=== PATIENT | male | born 1990 | race Caucasian/White ===

== ENCOUNTER 2018-08-09 16:15 | Inpatient (IN) ==
[2018-08-09] MEDS ORDERED: Morphine Inj 4 MG/ML Vial ONE ×3 (16:21→22:54)
[2018-08-09] MEDS ORDERED: Diphtheria/Tetanus/Pertussis Vaccine Inj 0.5 ML Syringe IM ONE (16:21)
[2018-08-09] MEDS ORDERED: ceFAZolin 2 GM Premix Inj 2 GM/50 ML PIGGYBACK IV.SIG ONE (16:21)
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
[2018-08-09 16:40] LABS: Baso # (Auto) 0.1 th/mm3 (0.0-0.2); Baso % (Auto) 0.7 % (0.0-2.0); Eos # (Auto) 0.2 th/mm3 (0.0-0.4); Eos % (Auto) 1.9 % (0.0-4.0); Hematocrit 40.2 % (39.0-51.0); Hemoglobin 14.3 gm/dL (13.0-17.0); Lymph # (Auto) 5.4 th/mm3 (1.0-4.8); Mean Corpuscular HGB Conc 35.4 % (32.0-36.0); Mean Corpuscular Hemoglobin 31.2 pg (27.0-34.0); Mean Corpuscular Volume 88.2 fL (80.0-100.0); Mono # (Auto) 1.2 th/mm3 (0.0-0.9); Mono % (Auto) 9.8 % (0.0-8.0); Neut # (Auto) 5.4 th/mm3 (1.8-7.7); Neut % (Auto) 43.6 % (16.0-70.0); Platelet Count 194 th/mm3 (150-450); Red Blood Count 4.56 mil/mm3 (4.50-5.90); Red Cell Distribution Width 13.2 % (11.6-17.2); White Blood Count 12.3 th/mm3 (4.0-11.0)
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
[2018-08-09 16:51] LABS: Activated Partial Thrombo Time 24.1 sec (23.4-31.7); INR 1.1 Ratio; Prothrombin Time 11.5 sec (9.8-11.6)
[2018-08-09 16:56] LABS: Anion Gap 6 meq/L (5-15); Blood Urea Nitrogen 35 mg/dL (7-18); Calcium 8.5 mg/dL (8.5-10.1); Carbon Dioxide 29.1 meq/L (21.0-32.0); Chloride 104 meq/L (98-107); Glomerular Filtration Rate 49 mL/min (>89); Glucose,Random 127 mg/dL (74-106); Sodium 139 meq/L (136-145)
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
[2018-08-09 17:22] LABS: Eosinophils 1 % (0-4); Lymphocytes 37 % (9-44); Monocytes 10 % (0-8)
[2018-08-09 17:23] LABS: Ovalocytes 1+; Platelet Estimate Normal (Normal); Platelet Morphology Normal (Normal)
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
[2018-08-09] MEDS ORDERED: Post-op Orders (for Pharmacy) OTHER ONE (18:07)
[2018-08-09] MEDS ORDERED: Bisacodyl 10 MG Supp RECTAL PRN (18:07)
[2018-08-09] MEDS ORDERED: Naloxone Inj 0.4 MG/ML Vial IV.PUSH PRN (18:07)
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
[2018-08-09] MEDS ORDERED: Post-op Orders (for Pharmacy) OTHER STA (22:20)
--- NOTE | 2018-08-09 22:20 | P.BOP ---
Date of procedure: 08/09/18 Procedure: 1. I&D L open tibia and fibula fractures 2. IMN L proximal third tibial shaft fracture 3. Closed treatment L fibula shaft fracture 4. Closed reduction left hip dislocation Implants: Synthes tibial IMN 10mm nail Anesthesia: GETA Surgeon: Nadja Mathews MD Estimated blood loss (mL): 200 Pathology: none sent Condition: stable Disposition: PACU (NWB LLE. STRICT POSTERIOR HIP PRECAUTIONS in [facility])
--- NOTE | 2018-08-09 22:52 | XR ---
EXAM DATE: 08/09/2018 10:46 PM EST AGE/SEX: 89 years / Male INDICATIONS: ORIF of left tibia done in the operating room. CLINICAL DATA: This is the patient's initial encounter. Patient reports that signs and symptoms have been present for 1 day and indicates a pain score of Nonresponsive. MEDICAL/SURGICAL HISTORY: Non-responsive. Non-responsive. COMPARISON: No prior exams available for comparison. FINDINGS: 5 spot intraoperative fluoroscopic views of the left tibia and fibula demonstrate antegrade intramedu llary rajat placement across the comminuted proximal tibial fracture with 3 proximal interlocking screw s and 2 distal interlocking screws. There is an oblique fracture of the proximal fibular diaphysis ag ain noted. CONCLUSION: ORIF left tibia fracture. Electronically signed by: Huber Kang MD 08/09/2018 10:51 PM EST
[2018-08-09] MEDS ORDERED: fentaNYL Citrate Inj 100 MCG/2 ML Ampul ONE (22:53)
--- NOTE | 2018-08-09 22:53 | XR ---
EXAM DATE: 08/09/2018 10:48 PM EST AGE/SEX: 89 years / Male INDICATIONS: Post reduction of the hip done in the operating room. CLINICAL DATA: This is the patient's initial encounter. Patient reports that signs and symptoms have been present for 1 day and indicates a pain score of Nonresponsive. MEDICAL/SURGICAL HISTORY: Non-responsive. Non-responsive. COMPARISON: [facility] [place] [facility] [place] PELVIS W CONTRAST, 08/09/2018. [facility] [place] [facility] [place] PELVIS AP 1V, 08/09/2018. . FINDINGS: A single spot AP fluoroscopic view of the left hip demonstrate a comminuted fracture of the acetabulu m. CONCLUSION: Left acetabular fracture. Electronically signed by: Huber Kang MD 08/09/2018 10:52 PM EST
[2018-08-09] MEDS ORDERED: *Ondansetron Inj 4 MG/2 ML Vial PERIprocedural Use ONLY ONE (23:22)
--- NOTE | 2018-08-10 00:08 | CT ---
EXAM DATE: 08/09/2018 11:47 PM EST AGE/SEX: 89 years / Male INDICATIONS: Left hip post reduction. CLINICAL DATA: This is the patient's initial encounter. Patient reports that signs and symptoms have been present for 1 day and indicates a pain score of Nonresponsive. MEDICAL/SURGICAL HISTORY: Non-responsive. Non-responsive. RADIATION DOSE: 59.20 CTDI (mGy) COMPARISON: [facility] [place], HIP LEFT AP ONLY 1V, 08/09/2018. [facility] [place] ABDOMEN & PELVIS W CONTRAST, 08/09/2018 . . TECHNIQUE: Multiple contiguous axial images were acquired using a multirow detector CT scanner witho ut contrast. Multiplanar reconstruction was performed in the sagittal and coronal planes. Using aut omated exposure control and adjustment of the mA and/or kV according to patient size, radiation dose was kept as low as reasonably achievable to obtain optimal diagnostic quality images. DICOM format i mage data is available electronically for review and comparison. FINDINGS: There is a comminuted fracture of the left acetabulum with multiple displaced fragments seen posterio rly. The sacroiliac joints are approximated. The fracture is seen through the roof of the acetabulum, extending to the anterior column and posterior column. The visualized proximal femur appears intact. CONCLUSION: 1. Comminuted acetabular fracture. Electronically signed by: Huber Kang MD 08/10/2018 12:07 AM EST
[2018-08-10] MEDS: ceFAZolin 1 GM Premix Inj 1 GM/50 ML PIGGYBACK IV.SIG SCH ×3 (00:21→23:03)
[2018-08-10] MEDS: HYDROmorphone PF Inj 1 MG/ML Ampul IV.PUSH PRN ×8 (00:41→23:35)
[2018-08-10] MEDS: Sod Chloride 0.9% Inj 1,000 ML IV.CONT SCH ×3 (01:18→21:50)
[2018-08-10 03:31] LABS: Amphetamine Screen,Urine Neg (Neg); Barbiturate Screen,Urine Neg (Neg); Cannabinoid Screen,Urine Neg (Neg); Cocaine Screen,Urine Neg (Neg)
[2018-08-10 03:33] LABS: Opiate Screen,Urine Pos (Neg)
[2018-08-10 03:34] LABS: Bacteria,Urine Rare /hpf; Bilirubin,Urine Negative (Negative); Clarity,Urine Clear (Clear); Color,Urine Yellow (Yellw/Straw); Glucose,Urine (UA) Negative (Negative); Leukocyte Esterase,Urine Negative (Negative); Mucus,Urine Few /lpf (Occasional); Nitrite,Urine Negative (Negative); Specific Gravity,Urine 1.031 (1.002-1.035)
[2018-08-10 04:23] LABS: Baso % (Auto) 0.1 % (0.0-2.0); Hematocrit 32.5 % (39.0-51.0); Hemoglobin 11.8 gm/dL (13.0-17.0); Lymph # (Auto) 0.8 th/mm3 (1.0-4.8); Lymph % (Auto) 9.1 % (9.0-44.0); Mean Corpuscular Hemoglobin 31.3 pg (27.0-34.0); Mean Corpuscular Volume 86.2 fL (80.0-100.0); Mean Platelet Volume 8.9 fL (7.0-11.0); Mono % (Auto) 11.7 % (0.0-8.0); Neut # (Auto) 6.9 th/mm3 (1.8-7.7); Neut % (Auto) 79.1 % (16.0-70.0); Platelet Count 146 th/mm3 (150-450); Red Blood Count 3.77 mil/mm3 (4.50-5.90); Red Cell Distribution Width 13.2 % (11.6-17.2); White Blood Count 8.8 th/mm3 (4.0-11.0)
[2018-08-10 04:38] LABS: Mean Corpuscular HGB Conc 36.3 % (32.0-36.0)
[2018-08-10 04:55] LABS: Anion Gap 6 meq/L (5-15); Blood Urea Nitrogen 20 mg/dL (7-18); Chloride 107 meq/L (98-107); Glomerular Filtration Rate Greater Than 89 mL/min (>89); Glucose,Random 157 mg/dL (74-106); Potassium 4.3 meq/L (3.5-5.1); Sodium 141 meq/L (136-145)
[2018-08-10 05:05] LABS: Albumin 3.5 g/dL (3.4-5.0)
[2018-08-10 05:13] LABS: Calcium-Albumin Corrected 7.4 mg/dL (8.5-10.1)
[2018-08-10 07:10] LABS: Lymphocytes 7 % (9-44); Monocytes 9 % (0-8)
[2018-08-10 07:11] LABS: Platelet Morphology Normal (Normal)
[2018-08-10] MEDS ORDERED: SODIUM CHLOR 0.9% IV.SIG ONE (07:55)
[2018-08-10] MEDS ORDERED: TRANEXAMIC ACID IV.SIG ONE (07:55)
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
[2018-08-10] MEDS: Methocarbamol 500 MG Tablet PO SCH ×3 (08:18→21:49)
[2018-08-10] MEDS: Senna/Docusate Sodium 8.6/50 MG Tablet PO SCH ×3 (08:18→20:33)
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
--- NOTE | 2018-08-10 11:27 | P.PNNS ---
Subjective Interval history: c/o of left hip pain, ortho planning for fixation, neuro exam stable overnight Physical Exam Vital signs: Vital Signs 08/09/18 17:08 08/09/18 17:09 08/09/18 18:00 Temperature Pulse Rate 66 68 Respiratory Rate 38 H 37 H 15 Blood Pressure 125/63 Pulse Oximetry 96 94 L 08/09/18 18:15 08/09/18 18:30 08/09/18 18:45 Temperature 98.3 F Pulse Rate 73 73 77 Respiratory Rate 16 17 17 Blood Pressure 114/58 L 121/56 L 128/58 L Pulse Oximetry 95 96 97 08/09/18 21:18 08/09/18 22:36 08/09/18 22:45 Temperature 98.5 F 98.5 F Pulse Rate 83 75 Respiratory Rate 14 20 Blood Pressure 126/58 L 122/58 L Pulse Oximetry 63 L 100 100 08/09/18 23:00 08/09/18 23:15 08/09/18 23:30 Temperature 98.5 F 98.5 F 98.5 F Pulse Rate 74 89 86 Respiratory Rate 18 18 22 Blood Pressure 123/58 L 118/55 L 115/58 L Pulse Oximetry 100 100 95 08/09/18 23:50 08/10/18 00:05 08/10/18 00:30 Temperature 98.5 F Pulse Rate 74 69 74 Respiratory Rate 14 22 20 Blood Pressure 101/55 L 118/57 L Pulse Oximetry 92 L 97 98 08/10/18 01:00 08/10/18 01:30 08/10/18 02:00 Temperature Pulse Rate 78 80 83 Respiratory Rate 17 17 18 Blood Pressure 118/55 L 120/59 L 121/62 Pulse Oximetry 98 98 98 08/10/18 02:30 08/10/18 03:00 08/10/18 03:30 Temperature Pulse Rate 80 83 88 Respiratory Rate 16 41 H 25 H Blood Pressure 123/56 L 113/53 L 110/52 L Pulse Oximetry 98 98 98 08/10/18 04:00 08/10/18 04:30 08/10/18 05:00 Temperature 98.4 F Pulse Rate 97 H 97 H 91 H Respiratory Rate 23 25 H 21 Blood Pressure 114/56 L 110/56 L 111/58 L Pulse Oximetry 97 98 98 08/10/18 05:30 08/10/18 06:00 08/10/18 06:27 Temperature Pulse Rate 98 H 82 Respiratory Rate 20 15 15 Blood Pressure 127/58 L 108/54 L Pulse Oximetry 99 98 08/10/18 06:30 08/10/18 07:00 08/10/18 07:30 Temperature Pulse Rate 101 H 97 H 96 H Respiratory Rate 15 14 20 Blood Pressure 104/53 L 110/54 L 118/55 L Pulse Oximetry 99 97 98 08/10/18 07:39 08/10/18 08:00 08/10/18 08:30 Temperature 98.2 F Pulse Rate 93 H 92 H Respiratory Rate 13 16 Blood Pressure 107/53 L 115/51 L Pulse Oximetry 98 98 98 08/10/18 09:00 08/10/18 09:30 08/10/18 10:00 Temperature Pulse Rate 92 H 93 H 91 H Respiratory Rate 18 16 16 Blood Pressure 97/51 L 108/55 L 108/66 Pulse Oximetry 97 97 95 Intake & Output 08/09/18 08/10/18 08/10/18 18:59 06:59 18:59 Intake Total 50 / 50 4050 / 4050 Output Total 1020 / 1020 Balance 50 / 50 3030 / 3030 Weight 103.1 kg 103.1 kg Intake: IV 50 / 50 1050 / 1050 NS Inj 1,000 ML @ 100 mls/hr IV 1000 / 1000 .CONT .Q10H [facility] Rx#:[id number] Ancef 1 GM Premix Inj 1 gm In 50 / 50 50 ml @ 100 mls/hr IV.SIG Q8H [facility] Rx#:[id number] Ancef 2 GM Premix Inj 2 gm In 50 / 50 50 ml @ 0 mls/hr IV.SIG .STK- MED ONE Rx#:[id number] Anesthesia Amount 3000 / 3000 Output: Urine 820 / 820 Estimated Blood Loss 200 / 200 Other: # Bowel Movements 0 Weight On Admission 103.1 kg Narrative: awake, alert NAD conversing well, speech fluent left lower leg bandaged, limited exam due to ortho injuries Assessment and Plan - Plan 28 y/o male TBI Head CT 08/09/18 16:19 CONCLUSION: 1. Small 0.7 cm focal intraparenchymal hemorrhage in the right parietal lobe. 2. Right parietal scalp injury/swelling. Plan neuro checks trauma and orthopedic management
[2018-08-10] MEDS ORDERED: Sugammadex Inj 200 MG/2 ML Vial IV.PUSH ONE (13:53)
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
[2018-08-10] MEDS ORDERED: Post-op Orders (for Pharmacy) OTHER STA (16:03)
[2018-08-10] MEDS ORDERED: Vancomycin Consult Pharmacy 1 EACH OTHER SCH (16:15)
--- NOTE | 2018-08-10 17:56 | P.PNOP ---
Subjective Interval history: POD#1 s/p I&D, IMN L tibia and closed reduction L hip dislocation Currently in OR for ORIF L acetabulum with Dr. Rooney Physical Exam Vital signs: Vital Signs 08/09/18 18:00 08/09/18 18:15 08/09/18 18:30 Temperature 98.3 F Pulse Rate 68 73 73 Respiratory Rate 15 16 17 Blood Pressure 114/58 L 121/56 L Pulse Oximetry 94 L 95 96 08/09/18 18:45 08/09/18 21:18 08/09/18 22:36 Temperature 98.5 F Pulse Rate 77 83 Respiratory Rate 17 14 Blood Pressure 128/58 L 126/58 L Pulse Oximetry 97 63 L 100 08/09/18 22:45 08/09/18 23:00 08/09/18 23:15 Temperature 98.5 F 98.5 F 98.5 F Pulse Rate 75 74 89 Respiratory Rate 20 18 18 Blood Pressure 122/58 L 123/58 L 118/55 L Pulse Oximetry 100 100 100 08/09/18 23:30 08/09/18 23:50 08/10/18 00:05 Temperature 98.5 F 98.5 F Pulse Rate 86 74 69 Respiratory Rate 22 14 22 Blood Pressure 115/58 L 101/55 L Pulse Oximetry 95 92 L 97 08/10/18 00:30 08/10/18 01:00 08/10/18 01:30 Temperature Pulse Rate 74 78 80 Respiratory Rate 20 17 17 Blood Pressure 118/57 L 118/55 L 120/59 L Pulse Oximetry 98 98 98 08/10/18 02:00 08/10/18 02:30 08/10/18 03:00 Temperature Pulse Rate 83 80 83 Respiratory Rate 18 16 41 H Blood Pressure 121/62 123/56 L 113/53 L Pulse Oximetry 98 98 98 08/10/18 03:30 08/10/18 04:00 08/10/18 04:30 Temperature 98.4 F Pulse Rate 88 97 H 97 H Respiratory Rate 25 H 23 25 H Blood Pressure 110/52 L 114/56 L 110/56 L Pulse Oximetry 98 97 98 08/10/18 05:00 08/10/18 05:30 08/10/18 06:00 Temperature Pulse Rate 91 H 98 H 82 Respiratory Rate 21 20 15 Blood Pressure 111/58 L 127/58 L 108/54 L Pulse Oximetry 98 99 98 08/10/18 06:27 08/10/18 06:30 08/10/18 07:00 Temperature Pulse Rate 101 H 97 H Respiratory Rate 15 15 14 Blood Pressure 104/53 L 110/54 L Pulse Oximetry 99 97 08/10/18 07:30 08/10/18 07:39 08/10/18 08:00 Temperature 98.2 F Pulse Rate 96 H 93 H Respiratory Rate 20 13 Blood Pressure 118/55 L 107/53 L Pulse Oximetry 98 98 98 08/10/18 08:30 08/10/18 09:00 08/10/18 09:30 Temperature Pulse Rate 92 H 92 H 93 H Respiratory Rate 16 18 16 Blood Pressure 115/51 L 97/51 L 108/55 L Pulse Oximetry 98 97 97 08/10/18 10:00 08/10/18 11:10 08/10/18 12:00 Temperature 98.3 F Pulse Rate 91 H 87 82 Respiratory Rate 16 18 17 Blood Pressure 108/66 112/58 L 108/55 L Pulse Oximetry 95 92 L 96 08/10/18 13:00 08/10/18 13:30 08/10/18 14:00 Temperature Pulse Rate 88 80 Respiratory Rate 16 16 15 Blood Pressure 108/58 L 101/56 L Pulse Oximetry 97 98 08/10/18 15:00 08/10/18 15:30 Temperature Pulse Rate 79 81 Respiratory Rate 15 16 Blood Pressure 112/51 L 113/51 L Pulse Oximetry 98 99 Intake & Output 08/09/18 08/10/18 08/10/18 18:59 06:59 18:59 Intake Total 50 / 50 4050 / 4050 165 / 165 Output Total 1020 / 1020 700 / 700 Balance 50 / 50 3030 / 3030 -535 / -535 Weight 103.1 kg 103.1 kg Intake: IV 50 / 50 1050 / 1050 165 / 165 NS Inj 1,000 ML @ 100 mls/hr IV 1000 / 1000 .CONT .Q10H [facility] Rx#:[id number] Cyklokapron Inj 1,500 MG In NS 115 / 115 Inj 100 ML @ 230 mls/hr IV.SIG ONCE ONE Rx#:[id number] Ancef 1 GM Premix Inj 1 gm In 50 / 50 50 / 50 50 ml @ 100 mls/hr IV.SIG Q8H [facility] Rx#:[id number] Ancef 2 GM Premix Inj 2 gm In 50 / 50 50 ml @ 0 mls/hr IV.SIG .STK- MED ONE Rx#:[id number] Anesthesia Amount 3000 / 3000 Output: Urine 820 / 820 700 / 700 Estimated Blood Loss 200 / 200 Other: # Bowel Movements 0 Weight On Admission 103.1 kg Narrative: Patient currently in OR Results - Labs CBC & Chem 7: 08/10/18 03:39 08/10/18 03:39 Laboratory Results - last 24 hr 08/10/18 08/10/18 08/10/18 02:20 02:20 03:39 WBC 8.8 RBC 3.77 L Hgb 11.8 L D Hct 32.5 L MCV 86.2 MCH 31.3 MCHC 36.3 H RDW 13.2 Plt Count 146 L MPV 8.9 Prelim Diff (Auto) Slide review pending Neut % (Auto) 79.1 H Lymph % (Auto) 9.1 Mcmullen % (Auto) 11.7 H Eos % (Auto) 0.0 Baso % (Auto) 0.1 Neut # (Auto) 6.9 Lymph # (Auto) 0.8 L Mcmullen # (Auto) 1.0 H Eos # (Auto) 0.0 Baso # (Auto) 0.0 WBC Differential Manual diff final Seg Neuts % (Manual) 79 H Band Neuts % (Manual) 5 Lymphocytes % (Manual) 7 L Monocytes % (Manual) 9 H Abs Neuts (Manual) 7.4 Differential Comment . Platelet Estimate Low L Platelet Morphology Normal Sodium Potassium Chloride Carbon Dioxide Anion Gap BUN Creatinine Estimated GFR Random Glucose Calcium Calcium Adj for Albumin Albumin Urine Color Yellow Urine Clarity Clear Urine pH 5.0 Ur Specific Gary 1.031 Urine Protein Negative Urine Glucose (UA) Negative Urine Ketones Trace H Urine Occult Blood Moderate H Urine Nitrate Negative Urine Bilirubin Negative Urine Urobilinogen Less than 2 Ur Leukocyte Esterase Negative Urine RBC 19 H Urine WBC 3 Urine Bacteria Rare H Urine Mucus Few H Micro UA Comment Culture not ind Ur Microscopic Review Not Reportable Urine Culture Comments Culture not ind Urine Opiates Screen Pos H Ur Barbiturates Screen Neg Ur Amphetamines Screen Neg U Benzodiazepines Scrn Neg Urine Cocaine Screen Neg U Cannabinoids Screen Neg MTS Gel Crossmatch Bld Prod Order Comment 08/10/18 08/10/18 03:39 17:37 WBC RBC Hgb Hct MCV MCH MCHC RDW Plt Count MPV Prelim Diff (Auto) Neut % (Auto) Lymph % (Auto) Mcmullen % (Auto) Eos % (Auto) Baso % (Auto) Neut # (Auto) Lymph # (Auto) Mcmullen # (Auto) Eos # (Auto) Baso # (Auto) WBC Differential Seg Neuts % (Manual) Band Neuts % (Manual) Lymphocytes % (Manual) Monocytes % (Manual) Abs Neuts (Manual) Differential Comment Platelet Estimate Platelet Morphology Sodium 141 Potassium 4.3 D Chloride 107 Carbon Dioxide 28.0 Anion Gap 6 BUN 20 H Creatinine 0.82 Estimated GFR Greater than 89 Random Glucose 157 H Calcium 7.0 L* D Calcium Adj for Albumin 7.4 L* Albumin 3.5 Urine Color Urine Clarity Urine pH Ur Specific Gary Urine Protein Urine Glucose (UA) Urine Ketones Urine Occult Blood Urine Nitrate Urine Bilirubin Urine Urobilinogen Ur Leukocyte Esterase Urine RBC Urine WBC Urine Bacteria Urine Mucus Micro UA Comment Ur Microscopic Review Urine Culture Comments Urine Opiates Screen Ur Barbiturates Screen Ur Amphetamines Screen U Benzodiazepines Scrn Urine Cocaine Screen U Cannabinoids Screen MTS Gel Crossmatch See Detail Bld Prod Order Comment - Imaging Impressions Hip X-Ray 08/09/ 00:00 CONCLUSION: Left acetabular fracture. Tibia/Fibula X-Ray 08/09/18 00:00 CONCLUSION: ORIF left tibia fracture. Hip CT 08/09/18 22:21 CONCLUSION: 1. Comminuted acetabular fracture. Assessment and Plan - Assessment and Plan 28yo M POD#1 s/p I&D and IMN L tibia, and closed reduction L hip dislocation POD#0 s/p ORIF L acetabulum with Dr. Rooney 1. Dressing changes to L tibia starting POD#2, then daily after that with xeroform, gauze and SAJAN 2. PWB 50% LLE from tibial standpoint. Patient will likely be NWB or TTWB due to his L acetabulum. Would encourage knee ROM 3. DVT ppx 4. Follow-up with Dr. Mathews in 2 weeks
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
[2018-08-10 18:26] LABS: Hematocrit 26.3 % (39.0-51.0); Hemoglobin 9.5 gm/dL (13.0-17.0); Mean Corpuscular Hemoglobin 31.9 pg (27.0-34.0); Mean Corpuscular Volume 88.2 fL (80.0-100.0); Mean Platelet Volume 8.9 fL (7.0-11.0); Platelet Count 116 th/mm3 (150-450); Red Blood Count 2.98 mil/mm3 (4.50-5.90); Red Cell Distribution Width 13.4 % (11.6-17.2); White Blood Count 6.1 th/mm3 (4.0-11.0)
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
[2018-08-10 18:39] LABS: Mean Corpuscular HGB Conc 36.2 % (32.0-36.0)
[2018-08-10] MEDS ORDERED: *Meperidine Inj 25 MG/ML Vial PERIprocedural Use ONLY ONE (18:55)
[2018-08-10] MEDS ORDERED: fentaNYL Citrate Inj 100 MCG/2 ML Ampul ONE (18:56)
[2018-08-10] MEDS ORDERED: Morphine Inj 4 MG/ML Vial ONE (18:56)
[2018-08-10] MEDS ORDERED: *morphine SULFATE 10 MG/ML PERIprocedure ONLY ONE (19:13)
--- NOTE | 2018-08-10 19:28 | XR ---
EXAM DATE: 08/10/2018 7:21 PM EST AGE/SEX: 28 years / Male INDICATIONS: Surgical repair, left acetabulum. CLINICAL DATA: This is the patient's initial encounter. Patient reports that signs and symptoms have been present for 1 day and indicates a pain score of Nonresponsive. MEDICAL/SURGICAL HISTORY: Non-responsive. Non-responsive. COMPARISON: No prior exams available for comparison. FINDINGS: 6 intraoperative spot images of the left hip demonstrate malleable internal fixation plates and trans fixing screws in the acetabulum. Hip joint alignment within normal limits. CONCLUSION: Intraoperative images demonstrating internal fixation hardware of the left acetabulum. Electronically signed by: Juan Kahn MD 08/10/2018 7:26 PM EST
[2018-08-10] MEDS ORDERED: Enoxaparin Inj 30 MG/0.3 ML Syringe SQ SCH (21:00)
[2018-08-10] MEDS ORDERED: ceFAZolin Inj 2,000 MG in Sodium Chlor 0.9% Inj 80 ML IV.SIG SCH (22:00)
[2018-08-10] MEDS ORDERED: ceFAZolin 2 GM Premix Inj 2 GM/50 ML PIGGYBACK IV.SIG SCH (22:00)
[2018-08-10] MEDS: Vancomycin Inj 2,000 MG in Sodium Chlor 0.9% Inj 500 ML IV.SIG SCH (23:03)
[2018-08-11] MEDS: ceFAZolin 2 GM Premix Inj 2 GM/50 ML PIGGYBACK IV.SIG SCH ×3 (00:24→17:10)
[2018-08-11] MEDS: Sod Chloride 0.9% Inj 1,000 ML IV.CONT SCH (01:46)
[2018-08-11] MEDS: HYDROmorphone PF Inj 1 MG/ML Ampul IV.PUSH PRN (01:46)
[2018-08-11] MEDS: Vancomycin Inj 2,000 MG in Sodium Chlor 0.9% Inj 500 ML IV.SIG SCH ×2 (05:41→17:48)
[2018-08-11] MEDS: Methocarbamol 500 MG Tablet PO SCH ×3 (05:41→21:00)
[2018-08-11] MEDS ORDERED: HYDROmorphone PF Inj 1 MG/ML Ampul IV.PUSH PRN (05:59)
[2018-08-11 06:08] LABS: Baso % (Auto) 0.2 % (0.0-2.0); Hemoglobin 9.6 gm/dL (13.0-17.0); Lymph # (Auto) 1.1 th/mm3 (1.0-4.8); Lymph % (Auto) 19.2 % (9.0-44.0); Mean Corpuscular HGB Conc 35.6 % (32.0-36.0); Mean Corpuscular Hemoglobin 31.6 pg (27.0-34.0); Mean Corpuscular Volume 88.6 fL (80.0-100.0); Mono # (Auto) 0.9 th/mm3 (0.0-0.9); Mono % (Auto) 16.2 % (0.0-8.0); Neut # (Auto) 3.7 th/mm3 (1.8-7.7); Neut % (Auto) 64.4 % (16.0-70.0); Platelet Count 113 th/mm3 (150-450); Red Blood Count 3.05 mil/mm3 (4.50-5.90); Red Cell Distribution Width 13.4 % (11.6-17.2); White Blood Count 5.7 th/mm3 (4.0-11.0)
[2018-08-11 06:21] LABS: Anion Gap 5 meq/L (5-15); Blood Urea Nitrogen 9 mg/dL (7-18); Calcium 7.6 mg/dL (8.5-10.1); Carbon Dioxide 30.8 meq/L (21.0-32.0); Chloride 105 meq/L (98-107); Glomerular Filtration Rate Greater Than 89 mL/min (>89); Glucose,Random 118 mg/dL (74-106); Potassium 4.3 meq/L (3.5-5.1); Sodium 141 meq/L (136-145)
[2018-08-11] MEDS: Senna/Docusate Sodium 8.6/50 MG Tablet PO SCH ×2 (08:36→20:54)
[2018-08-11] MEDS: Indomethacin 75 MG ER Capsule PO SCH (08:36)
[2018-08-11] MEDS ORDERED: Sod Chloride 0.9% Inj 1,000 ML IV.SIG ONE (10:52)
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
[2018-08-11] MEDS: Gabapentin 300 MG Capsule PO SCH ×2 (12:17→17:10)
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
--- NOTE | 2018-08-11 16:06 | RADONCENDT ---
END OF TREATMENT SUMMARY Date: 08/11/2018 Patient Name: Glenn Leiva Date of : 1990 Age: 28 Sex: Male END OF TREATMENT SUMMARY PRIMARY REFERRING PHYSICIAN: Haven Conklin CC: Haven Conklin DIAGNOSIS: Primary M89.8X9 - Other specified disorders of bone, unspecified site, Diagnosed 08/11/2018 (Active) , Diagnosis Confirmed: Suspected Diagnosis Date: 08/11/2018 Diagnosis Laterality: Method of Diagnosis: Unknown PRESCRIPTION AND TREATMENT: Lt Hip (Plan ID - Lt Hip c1) - Rx Dose 700cGy (Status - Treatment Approved) - PLAN FRACTIONS AND DATES: Course: Lt Hip Plan IDFractionsFirst TreatmentLast TreatmentExpected End of TreatmentLt Hip c11 / 1 TREATED PLANS: Course: Lt Hip Plan IDEnergyFractionsDose per Fraction (cGy)Dose Correction (cGy)Total Dose Delivered (cGy)Elapsed DaysLt Hip c115X1 / [id number] TOLERANCE: good. FOLLOW UP PLAN: HANNAH Carias MD 08/11/2018 4:05:55 PM This report was verified electronicallyThis report was verified electronically
[2018-08-11] MEDS: Enoxaparin Inj 30 MG/0.3 ML Syringe SQ SCH (20:54)
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
[2018-08-11] MEDS: Morphine Inj 4 MG/ML Vial IV.PUSH PRN (22:36)
[2018-08-12] MEDS: Morphine Inj 4 MG/ML Vial IV.PUSH PRN ×6 (04:06→23:39)
[2018-08-12] MEDS: Methocarbamol 500 MG Tablet PO SCH ×3 (05:49→21:51)
[2018-08-12] MEDS: Vancomycin Inj 2,000 MG in Sodium Chlor 0.9% Inj 500 ML IV.SIG SCH (05:50)
[2018-08-12 07:36] LABS: Anion Gap 6 meq/L (5-15); Blood Urea Nitrogen 9 mg/dL (7-18); Calcium 7.2 mg/dL (8.5-10.1); Carbon Dioxide 29.9 meq/L (21.0-32.0); Chloride 105 meq/L (98-107); Glomerular Filtration Rate Greater Than 89 mL/min (>89); Glucose,Random 99 mg/dL (74-106); Potassium 3.8 meq/L (3.5-5.1); Sodium 141 meq/L (136-145)
[2018-08-12 07:45] LABS: Albumin 2.7 g/dL (3.4-5.0); Baso % (Auto) 0.5 % (0.0-2.0); Calcium-Albumin Corrected 8.2 mg/dL (8.5-10.1); Eos % (Auto) 0.6 % (0.0-4.0); Hematocrit 22.7 % (39.0-51.0); Lymph % (Auto) 21.7 % (9.0-44.0); Mean Corpuscular HGB Conc 35.3 % (32.0-36.0); Mean Corpuscular Hemoglobin 31.3 pg (27.0-34.0); Mean Corpuscular Volume 88.6 fL (80.0-100.0); Mono # (Auto) 0.6 th/mm3 (0.0-0.9); Mono % (Auto) 12.1 % (0.0-8.0); Neut # (Auto) 3.1 th/mm3 (1.8-7.7); Neut % (Auto) 65.1 % (16.0-70.0); Platelet Count 83 th/mm3 (150-450); Red Blood Count 2.56 mil/mm3 (4.50-5.90); White Blood Count 4.7 th/mm3 (4.0-11.0)
[2018-08-12] MEDS: Gabapentin 300 MG Capsule PO SCH ×3 (08:15→18:00)
[2018-08-12] MEDS: Indomethacin 75 MG ER Capsule PO SCH (08:15)
[2018-08-12] MEDS: Senna/Docusate Sodium 8.6/50 MG Tablet PO SCH ×2 (08:15→20:35)
[2018-08-12] MEDS: Enoxaparin Inj 30 MG/0.3 ML Syringe SQ SCH ×2 (08:15→20:36)
[2018-08-12 11:40] LABS: Ovalocytes 1+; Platelet Morphology Normal (Normal)
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
[2018-08-12] MEDS: Vancomycin Inj 1,500 MG in Sodium Chlor 0.9% Inj 500 ML IV.SIG SCH (18:00)
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
[2018-08-13] MEDS: Morphine Inj 4 MG/ML Vial IV.PUSH PRN ×4 (03:58→21:32)
[2018-08-13 06:10] LABS: Baso % (Auto) 0.8 % (0.0-2.0); Eos # (Auto) 0.2 th/mm3 (0.0-0.4); Eos % (Auto) 4.8 % (0.0-4.0); Hematocrit 22.6 % (39.0-51.0); Hemoglobin 8.1 gm/dL (13.0-17.0); Lymph # (Auto) 1.4 th/mm3 (1.0-4.8); Lymph % (Auto) 33.9 % (9.0-44.0); Mean Corpuscular HGB Conc 35.7 % (32.0-36.0); Mean Corpuscular Hemoglobin 31.2 pg (27.0-34.0); Mean Corpuscular Volume 87.3 fL (80.0-100.0); Mean Platelet Volume 8.4 fL (7.0-11.0); Mono # (Auto) 0.5 th/mm3 (0.0-0.9); Mono % (Auto) 12.1 % (0.0-8.0); Neut # (Auto) 1.9 th/mm3 (1.8-7.7); Neut % (Auto) 48.4 % (16.0-70.0); Platelet Count 107 th/mm3 (150-450); Red Blood Count 2.59 mil/mm3 (4.50-5.90); Red Cell Distribution Width 12.8 % (11.6-17.2)
[2018-08-13] MEDS: Vancomycin Inj 1,500 MG in Sodium Chlor 0.9% Inj 500 ML IV.SIG SCH (06:24)
[2018-08-13] MEDS: Methocarbamol 500 MG Tablet PO SCH ×3 (06:24→21:31)
[2018-08-13 06:39] LABS: Anion Gap 4 meq/L (5-15); Blood Urea Nitrogen 10 mg/dL (7-18); Carbon Dioxide 31.9 meq/L (21.0-32.0); Chloride 106 meq/L (98-107); Glomerular Filtration Rate Greater Than 89 mL/min (>89); Glucose,Random 113 mg/dL (74-106); Potassium 4.1 meq/L (3.5-5.1); Sodium 142 meq/L (136-145)
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
[2018-08-13] MEDS: Enoxaparin Inj 30 MG/0.3 ML Syringe SQ SCH ×2 (08:49→21:30)
[2018-08-13] MEDS: Indomethacin 75 MG ER Capsule PO SCH (08:50)
[2018-08-13] MEDS: Senna/Docusate Sodium 8.6/50 MG Tablet PO SCH ×2 (08:50→21:31)
[2018-08-13] MEDS: Gabapentin 300 MG Capsule PO SCH ×3 (08:50→18:20)
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
[2018-08-14] MEDS: Methocarbamol 500 MG Tablet PO SCH ×4 (05:01→22:04)
[2018-08-14] MEDS ORDERED: Pharmacy Ordered Lab Info OTHER ONE (05:45)
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
[2018-08-14] MEDS: Enoxaparin Inj 30 MG/0.3 ML Syringe SQ SCH ×2 (08:56→20:26)
[2018-08-14] MEDS: Indomethacin 75 MG ER Capsule PO SCH (08:56)
[2018-08-14] MEDS: Senna/Docusate Sodium 8.6/50 MG Tablet PO SCH ×2 (08:56→20:26)
[2018-08-14] MEDS: Gabapentin 300 MG Capsule PO SCH ×3 (08:56→17:33)
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
[2018-08-15] MEDS: Methocarbamol 500 MG Tablet PO SCH ×3 (05:42→21:51)
[2018-08-15] MEDS: Senna/Docusate Sodium 8.6/50 MG Tablet PO SCH ×2 (09:31→20:30)
[2018-08-15] MEDS: Gabapentin 300 MG Capsule PO SCH ×3 (09:31→17:42)
[2018-08-15] MEDS: Enoxaparin Inj 30 MG/0.3 ML Syringe SQ SCH ×2 (09:31→21:51)
[2018-08-15] MEDS: Indomethacin 75 MG ER Capsule PO SCH (09:31)
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
[2018-08-16] MEDS: Methocarbamol 500 MG Tablet PO SCH ×4 (06:23→21:52)
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
[2018-08-16] MEDS ORDERED: Bisacodyl 10 MG Supp RECTAL ONE (08:00)
[2018-08-16] MEDS: Senna/Docusate Sodium 8.6/50 MG Tablet PO SCH ×2 (08:34→20:21)
[2018-08-16] MEDS: Gabapentin 300 MG Capsule PO SCH ×4 (08:34→17:33)
[2018-08-16] MEDS: Enoxaparin Inj 30 MG/0.3 ML Syringe SQ SCH ×2 (08:35→20:18)
[2018-08-16] MEDS: Indomethacin 75 MG ER Capsule PO SCH (08:35)
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
[2018-08-17] MEDS: Senna/Docusate Sodium 8.6/50 MG Tablet PO SCH ×2 (09:26→21:24)
[2018-08-17] MEDS: Gabapentin 300 MG Capsule PO SCH ×3 (09:26→17:29)
[2018-08-17] MEDS: Indomethacin 75 MG ER Capsule PO SCH (09:27)
[2018-08-17] MEDS: Enoxaparin Inj 30 MG/0.3 ML Syringe SQ SCH ×2 (09:27→21:25)
[2018-08-17] MEDS: Methocarbamol 500 MG Tablet PO SCH ×3 (09:35→21:23)
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
[2018-08-17 16:02] LABS: Baso % (Auto) 0.6 % (0.0-2.0); Eos # (Auto) 0.2 th/mm3 (0.0-0.4); Eos % (Auto) 2.7 % (0.0-4.0); Hematocrit 29.9 % (39.0-51.0); Hemoglobin 10.8 gm/dL (13.0-17.0); Lymph # (Auto) 1.3 th/mm3 (1.0-4.8); Lymph % (Auto) 18.5 % (9.0-44.0); Mean Corpuscular HGB Conc 35.9 % (32.0-36.0); Mean Corpuscular Hemoglobin 31.5 pg (27.0-34.0); Mean Corpuscular Volume 87.7 fL (80.0-100.0); Mean Platelet Volume 7.3 fL (7.0-11.0); Mono # (Auto) 0.7 th/mm3 (0.0-0.9); Mono % (Auto) 9.3 % (0.0-8.0); Neut % (Auto) 68.9 % (16.0-70.0); Platelet Count 281 th/mm3 (150-450); Red Blood Count 3.41 mil/mm3 (4.50-5.90); Red Cell Distribution Width 13.3 % (11.6-17.2); White Blood Count 7.3 th/mm3 (4.0-11.0)
[2018-08-17 16:32] LABS: Platelet Estimate Normal (Normal); Platelet Morphology Normal (Normal); RBC Morphology Normal (Normal)
[2018-08-17 16:34] LABS: Albumin 3.5 g/dL (3.4-5.0); Anion Gap 6 meq/L (5-15); Aspartate Aminotransferase 104 U/L (15-37); Blood Urea Nitrogen 18 mg/dL (7-18); Calcium 8.9 mg/dL (8.5-10.1); Carbon Dioxide 31.2 meq/L (21.0-32.0); Chloride 99 meq/L (98-107); Glomerular Filtration Rate Greater Than 89 mL/min (>89); Glucose,Random 108 mg/dL (74-106); Potassium 4.2 meq/L (3.5-5.1); Sodium 136 meq/L (136-145)
[2018-08-17 16:36] LABS: Alanine Aminotransferase 208 U/L (12-78)
[2018-08-17 16:37] LABS: Alkaline Phosphatase 61 U/L (45-117); Total Protein 7.3 g/dL (6.4-8.2)
[2018-08-18] MEDS: Methocarbamol 500 MG Tablet PO SCH (05:32)
[2018-08-18] MEDS: Gabapentin 300 MG Capsule PO SCH (08:24)
[2018-08-18] MEDS: Senna/Docusate Sodium 8.6/50 MG Tablet PO SCH (08:24)
[2018-08-18] MEDS: Indomethacin 75 MG ER Capsule PO SCH (08:24)
[2018-08-18] MEDS: Enoxaparin Inj 30 MG/0.3 ML Syringe SQ SCH (08:26)
[2018-08-18] MEDS ORDERED: Morphine Sulfate Inj 2 MG/ML Vial IV.PUSH ONE (09:21)
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
== END 2018-08-18 10:21 | disposition home or self-care (01) ==
LOC: NEPI 16:15 → EDBD 17:06 → NEDA 17:06 → N03 17:34 → N07 08-10 17:54 → N06 08-10 19:30
PROVIDERS: ADMIT Surgery; ATTEND Surgery
PROC: ORIFTIB (2018-08-09 18:56)
PROC: ORIFACE (2018-08-10 16:08)
DX: M89.8X2 Other specified disorders of bone, upper arm; R55 Syncope and collapse; S82.102B Unspecified fracture of upper end of left tibia, initial encounter for open fracture type I or II; S40.012A Contusion of left shoulder, initial encounter; S82.402B Unspecified fracture of shaft of left fibula, initial encounter for open fracture type I or II; S32.422A Displaced fracture of posterior wall of left acetabulum, initial encounter for closed fracture; S73.015A Posterior dislocation of left hip, initial encounter; V23.4XXA Motorcycle driver injured in collision with car, pick-up truck or van in traffic accident, initial encounter; F01.50 Vascular dementia, unspecified severity, without behavioral disturbance, psychotic disturbance, mood disturbance, and anxiety; S01.01XA Laceration without foreign body of scalp, initial encounter; S06.349A Traumatic hemorrhage of right cerebrum with loss of consciousness of unspecified duration, initial encounter; Y92.488 Other paved roadways as the place of occurrence of the external cause